=== PATIENT | female | born 1990 | race Two or more races ===

== ENCOUNTER 2021-07-10 15:00 | Inpatient (IN) | payer OTHER ==
[~2021-07-10] VITALS: Ht 154.9 cm; Wt 3.6 kg
[2021-07-14] MEDS ORDERED: PRENATAL TABLE1 EAC1 PO (09:56)
[2021-07-14] MEDS ORDERED: FOLIC ACID20 MG PO (09:56)
== END 2021-07-16 16:35 | disposition home or self-care (01) | DRG 788 ==
LOC: LDR 07-14 06:16 → OB/GYN 07-14 06:16 → SURG-SUITE 07-15 12:43 → OB/GYN 07-19 15:00
PROVIDERS: ADMIT Obstetrics & Gynecology; ATTEND Obstetrics & Gynecology
PROC: 10907ZC Drainage of Amniotic Fluid, Therapeutic from Products of Conception, Via Natural or Artificial Opening (ICD-10-PCS; 2021-07-14)
PROC: 3E033VJ Introduction of Other Hormone into Peripheral Vein, Percutaneous Approach (ICD-10-PCS; 2021-07-14)
PROC: 4A1HXFZ Monitoring of Products of Conception, Cardiac Rhythm, External Approach (ICD-10-PCS; 2021-07-14)
PROC: 10D00Z1 Extraction of Products of Conception, Low, Open Approach (ICD-10-PCS; principal; 2021-07-14 19:30)
DX: O62.1 Secondary uterine inertia (principal); O65.8 Obstructed labor due to other maternal pelvic abnormalities; O99.824 Streptococcus B carrier state complicating childbirth; Z37.0 Single live birth; Z3A.39 39 weeks gestation of pregnancy